=== PATIENT | male | born 1955 | race African-American/Black ===

== ENCOUNTER 2017-08-17 11:01 | Inpatient (IN) | payer OTHER ==
[~2017-08-17] VITALS: Ht 170.2 cm; Wt 97.5 kg
[~2017-08-17 11:01] MED LIST: FLOMAX0.4 MG ORAL; IBUPROFEN600 MG ORAL; IBUPROFEN600 MG PO; NKM; TRAMADOL HCL50 MG ORAL; TYLENOL #21 EA ORAL; VICODIN 5-5001 EACH PO
[2017-08-17 11:21] VITALS: BP 150/84
[2017-08-17] MEDS ORDERED: Solu-MEDROL 125mg Inj IVP ONE (11:45)
[2017-08-17] MEDS ORDERED: DiphenhydrAMINE 50mg/ml Inj IVP ONE (11:45)
[2017-08-17 12:20] LABS: BASOPHILS % (AUTO) 1.3 % (0.0-2.0); EOSINOPHILS % (AUTO) 1.3 % (0.0-3.0); HEMATOCRIT 45.1 % (42.0-52.0); HEMOGLOBIN 14.5 G/DL (14.2-18.0); LYMPHOCYTES % (AUTO) 24.6 % (20.0-45.0); MEAN CORPUSCULAR VOLUME 89 FL (80-99); MONOCYTES % (AUTO) 7.8 % (1.0-10.0); PLATELET COUNT 234 K/UL (150-450); RED BLOOD COUNT 5.09 M/UL (4.70-6.10); RED CELL DISTRIBUTION WIDTH 12.5 % (11.6-14.8); WHITE BLOOD COUNT 8.2 K/UL (4.8-10.8)
--- NOTE | 2017-08-17 12:24 | Diagnostic Imaging Report ---
Indication: Dyspnea Technique: XRAY Chest 1v Comparison: None Findings: Heart size and mediastinal contours are within normal limits given technique. There is no focal consolidation, pneumothorax or pleural effusion. Degenerative changes noted in the spine. Osseous structures demonstrate no acute abnormality. Impression: No radiographic evidence of acute cardiopulmonary disease.
[2017-08-17 12:34] LABS: ANION GAP 9 mmol/L (5-15); BLOOD UREA NITROGEN 11 mg/dL (7-18); CALCIUM 9.4 MG/DL (8.5-10.1); CARBON DIOXIDE 26 MMOL/L (21-32); CHLORIDE 102 MMOL/L (98-107); CREATININE 0.8 MG/DL (0.55-1.30); POTASSIUM 3.9 MMOL/L (3.5-5.1); SODIUM 136 MMOL/L (136-145)
[2017-08-17 12:38] LABS: ALANINE AMINOTRANSFERASE 25 U/L (12-78); ALBUMIN 3.7 G/DL (3.4-5.0); ALBUMIN/GLOBULIN RATIO 0.9 (1.0-2.7); ALKALINE PHOSPHATASE 51 U/L (46-116); ASPARTATE AMINO TRANSFERASE 16 U/L (15-37); BILIRUBIN,TOTAL 0.7 MG/DL (0.2-1.0)
[2017-08-17] MEDS ORDERED: FINASTERIDE5 MG ORAL (12:44)
[2017-08-17] MEDS ORDERED: PROSCAR5 MG ORAL (12:44)
[2017-08-17] MEDS ORDERED: PRILOSEC OTC20 MG ORAL (12:45)
--- NOTE | 2017-08-17 12:53 | Emergency Room Report ---
History of Present Illness General Chief Complaint: Allergic Reaction Source: Patient, Medical Record Present Illness HPI 62-year-old male presents with acute swelling of tongue and lips since this morning. Patient stating that this has been happening on and off for 6-7 months. He attributes it to salt allergy. He takes medication for prostate including finasteride. He is not on an DWAYNE inhibitor or ARB. He denies chest pain, shortness of breath, rash. He took a "allergy pill" this morning and the tongue swelling went down. Allergies: Coded Allergies: PENICILLINS (Verified Adverse Reaction, GI UPSET, 10/27/13) upset stomach Patient History Past Medical History: other - bph Past Surgical History: none Pertinent Family History: none Social History: Denies: smoking, alcohol use, drug use Immunizations: UTD Reviewed Nursing Documentation: PMH: Agreed, PSxH: Agreed Nursing Documentation-PMH Past Medical History: No History, Except For Review of Systems All Other Systems: negative except mentioned in HPI Physical Exam Vital Signs Date Time Temp Pulse Resp B/P (MAP) Pulse Ox O2 Delivery O2 Flow Rate FiO2 08/17/17 11:03 98.1 81 18 150/84 97 Room Air Sp02 EP Interpretation: reviewed, normal General Appearance: normal inspection, well appearing, no apparent distress, alert, GCS 15, non-toxic Head: normocephalic, atraumatic Eyes: bilateral eye PERRL, bilateral eye EOMI ENT: normal ENT inspection, hearing grossly normal, normal pharynx, no angioedema, normal voice, TMs + canals normal, uvula midline, moist mucus membranes, other - Upper and lower lip swelling. Tongue is normal size, oropharynx clear Neck: normal inspection, full range of motion, supple, thyroid normal, no meningismus, no bony tend Respiratory: normal inspection, lungs clear, normal breath sounds, no rhonchi, no respiratory distress, no retraction, no accessory muscle use, no wheezing, speaking full sentences Cardiovascular #1: regular rate, rhythm, no edema, no JVD, normal capillary refill Gastrointestinal: normal inspection, normal bowel sounds, non tender, soft, no mass, no peritonitis, non-distended, no guarding, no hernia, no pulsatile mass Genitourinary: no CVA tenderness Musculoskeletal: normal inspection, back normal, normal range of motion, no calf tenderness, pelvis stable, Slick's Sign negative Neurologic: normal inspection, alert, oriented x3, responsive, customer success director III-XII nml as tested, motor strength/tone normal, cerebellar normal, normal gait, speech normal Psychiatric: normal inspection, judgement/insight normal, mood/affect normal, no suicidal/homicidal ideation, no delusions Skin: normal inspection, normal color, no rash Lymphatic: normal inspection, no adenopathy Medical Decision Making Diagnostic Impression: Primary Impression: Angioedema Qualified Codes: T78.3XXA - Angioneurotic edema, initial encounter ER Course 62-year-old male with likely angioedema Unknown etiology - not on ARBs, ACEi Per Uptodate <1% chance of angioedema in patients taking finasteride Was given steroids and additional Benadryl in ER with improvement in swelling of lips Oropharynx clear, airway patent - patient tolerating PO However patient warrants telemetry monitoring to evaluate airway to ensure no acute worsening labs otherwise unremarkable Tele Admit Endorsed to Dr Hitchcock at 230pm to followup admission to hospitalist vs transfer EKG Diagnostic Results Rate: normal Rhythm: NSR ST Segments: no acute changes ASA given to the pt in ED: No Rhythm Strip Diag. Results EP Interpretation: yes Rate: 63 Rhythm: NSR, no PVC's, no ectopy Last Vital Signs Date Time Temp Pulse Resp B/P (MAP) Pulse Ox O2 Delivery O2 Flow Rate FiO2 08/17/17 11:21 98.1 18 150/84 97 Room Air 08/17/17 11:03 81 Status: improved Disposition: ADMITTED INPATIENT Condition: Serious TERRA BISHOP M.D. Aug 17, 2017 12:53
[2017-08-17 14:38] VITALS: BP 141/74
[2017-08-17 16:38] VITALS: BP 116/50
[2017-08-17] MEDS ORDERED: Mylanta II UD 30ml ORAL PRN (19:00)
[2017-08-17] MEDS ORDERED: Morphine Sulfate 2mg/ml Inj IVP PRN (19:00)
[2017-08-17] MEDS ORDERED: Miralax 17gm pkt ORAL PRN (19:00)
[2017-08-17] MEDS ORDERED: Zolpidem 5mg tab ORAL PRN (19:00)
[2017-08-17] MEDS ORDERED: LORazepam Inj 2mg/ml 1ml IV PRN (19:00)
[2017-08-17 20:00] VITALS: BP 138/71
[2017-08-17] MEDS: DiphenhydrAMINE 50mg/ml Inj IVP SCH (20:11)
[2017-08-17] MEDS: Solu-MEDROL 40mg Inj IVP SCH (20:12)
[2017-08-18] VITALS: BP 129/81
[2017-08-18] MEDS: DiphenhydrAMINE 50mg/ml Inj IVP SCH ×2 (00:13→05:44)
[2017-08-18 04:00] VITALS: BP 140/78
[2017-08-18] MEDS: Solu-MEDROL 40mg Inj IVP SCH (05:44)
[2017-08-18 08:47] LABS: HEMATOCRIT 41.9 % (42.0-52.0); HEMOGLOBIN 14.2 G/DL (14.2-18.0); MEAN CORPUSCULAR VOLUME 88 FL (80-99); PLATELET COUNT 234 K/UL (150-450); RED BLOOD COUNT 4.75 M/UL (4.70-6.10); RED CELL DISTRIBUTION WIDTH 12.6 % (11.6-14.8); WHITE BLOOD COUNT 11.7 K/UL (4.8-10.8)
[2017-08-18] MEDS ORDERED: Naproxen 375mg tab ORAL SCH (09:00)
[2017-08-18 09:17] LABS: ALANINE AMINOTRANSFERASE 24 U/L (12-78); ALBUMIN 3.4 G/DL (3.4-5.0); ALBUMIN/GLOBULIN RATIO 0.8 (1.0-2.7); ALKALINE PHOSPHATASE 47 U/L (46-116); ANION GAP 8 mmol/L (5-15); ASPARTATE AMINO TRANSFERASE 12 U/L (15-37); BILIRUBIN,TOTAL 0.4 MG/DL (0.2-1.0); BLOOD UREA NITROGEN 17 mg/dL (7-18); CALCIUM 9.5 MG/DL (8.5-10.1); CARBON DIOXIDE 24 MMOL/L (21-32); CHLORIDE 102 MMOL/L (98-107); CHOLESTEROL 175 MG/DL (< 200); CREATININE 0.9 MG/DL (0.55-1.30); HDL CHOLESTEROL 39 MG/DL (40-60); POTASSIUM 3.9 MMOL/L (3.5-5.1); SODIUM 134 MMOL/L (136-145); TRIGLYCERIDES 41 MG/DL (30-150)
--- NOTE | 2017-08-18 09:35 | History and Physical ---
History of Present Illness General Date patient seen: Aug 18, 2017 Reason for Hospitalization: Allergic Reaction Present Illness HPI 62-year-old male with hx of HTN, BPH presented to ER with acute swelling of tongue and lips since this morning. He takes medication for prostate including finasteride. He is not on an DWAYNE inhibitor or ARB. He denies chest pain, shortness of breath, rash. His tongue was a size of his fist. Allergies: Coded Allergies: PENICILLINS (Verified Adverse Reaction, GI UPSET, 10/27/13) upset stomach Medication History Scheduled Acetaminophen/Codeine (Acetaminophen-Cod #2 Tablet), 1 TAB ORAL Q4H, (Reported) Finasteride (Finasteride), 5 MG ORAL DAILY, (Reported) Finasteride* (Proscar*), 5 MG ORAL DAILY, (Reported) No Known Medications* (NKM - No Known Medications*), 0 ., (Reported) Omeprazole Magnesium (Prilosec Otc), 20 MG ORAL DAILY, (Reported) Tamsulosin HCl (Flomax), 0.4 MG ORAL DAILY, (Reported) Scheduled PRN Ibuprofen* (Motrin*), 600 MG ORAL Q8H PRN for For Pain Ibuprofen* (Motrin*), 600 MG ORAL Q6H PRN for For Pain Tramadol Hcl* (Ultram*), 50 MG ORAL Q6H PRN for For Pain Patient History Healthcare decision maker Sundar Francisco Resuscitation status Full Code Advanced Directive on File Past Medical/Surgical History Past Medical/Surgical History: (1) BPH (benign prostatic hyperplasia) Review of Systems All Other Systems: negative except mentioned in HPI Physical Exam General Appearance: WD/WN Lines, tubes and drains: peripheral HEENT: normocephalic, anicteric Neck: non-tender, supple Respiratory/Chest: chest wall non-tender, normal breath sounds Breasts: no masses Cardiovascular/Chest: normal rate Abdomen: normal bowel sounds Last 24 Hour Vital Signs Date Time Temp Pulse Resp B/P (MAP) Pulse Ox O2 Delivery O2 Flow Rate FiO2 08/18/17 04:00 97.0 68 20 140/78 97 08/18/17 03:39 68 08/18/17 00:00 97.7 71 20 129/81 98 08/17/17 23:42 68 08/17/17 20:44 90 08/17/17 20:00 97.6 84 20 138/71 100 08/17/17 16:39 98.1 76 14 116/50 99 Room Air 08/17/17 16:38 98.1 76 21 116/50 97 Room Air 08/17/17 14:38 98.1 79 14 141/74 99 Room Air 08/17/17 11:21 98.1 18 150/84 97 Room Air 08/17/17 11:03 98.1 81 18 150/84 97 Room Air Intake and Output 08/17/17 08/18/17 19:00 07:00 Intake Total 240 ml 240 ml Balance 240 ml 240 ml Intake Oral 240 ml 240 ml # Voids 1 2 Laboratory Tests Test 08/17/17 12:08 08/18/17 07:10 White Blood Count 8.2 K/UL (4.8-10.8) 11.7 K/UL (4.8-10.8) H Red Blood Count 5.09 M/UL (4.70-6.10) 4.75 M/UL (4.70-6.10) Hemoglobin 14.5 G/DL (14.2-18.0) 14.2 G/DL (14.2-18.0) Hematocrit 45.1 % (42.0-52.0) 41.9 % (42.0-52.0) L Mean Corpuscular Volume 89 FL (80-99) 88 FL (80-99) Mean Corpuscular Hemoglobin 28.4 PG (27.0-31.0) 30.0 PG (27.0-31.0) Mean Corpuscular Hemoglobin Concent 32.1 G/DL (32.0-36.0) 33.9 G/DL (32.0-36.0) Red Cell Distribution Width 12.5 % (11.6-14.8) 12.6 % (11.6-14.8) Platelet Count 234 K/UL (150-450) 234 K/UL (150-450) Mean Platelet Volume 10.1 FL (6.5-10.1) 10.1 FL (6.5-10.1) Neutrophils (%) (Auto) 65.0 % (45.0-75.0) % (45.0-75.0) Lymphocytes (%) (Auto) 24.6 % (20.0-45.0) % (20.0-45.0) Monocytes (%) (Auto) 7.8 % (1.0-10.0) % (1.0-10.0) Eosinophils (%) (Auto) 1.3 % (0.0-3.0) % (0.0-3.0) Basophils (%) (Auto) 1.3 % (0.0-2.0) % (0.0-2.0) Sodium Level 136 MMOL/L (136-145) 134 MMOL/L (136-145) L Potassium Level 3.9 MMOL/L (3.5-5.1) 3.9 MMOL/L (3.5-5.1) Chloride Level 102 MMOL/L (98-107) 102 MMOL/L (98-107) Carbon Dioxide Level 26 MMOL/L (21-32) 24 MMOL/L (21-32) Anion Gap 9 mmol/L (5-15) 8 mmol/L (5-15) Blood Urea Nitrogen 11 mg/dL (7-18) 17 mg/dL (7-18) Creatinine 0.8 MG/DL (0.55-1.30) 0.9 MG/DL (0.55-1.30) Estimat Glomerular Filtration Rate > 60 mL/min (>60) > 60 mL/min (>60) Glucose Level 96 MG/DL (74-106) 147 MG/DL (74-106) H Calcium Level 9.4 MG/DL (8.5-10.1) 9.5 MG/DL (8.5-10.1) Total Bilirubin 0.7 MG/DL (0.2-1.0) 0.4 MG/DL (0.2-1.0) Aspartate Amino Transf (AST/SGOT) 16 U/L (15-37) 12 U/L (15-37) L Alanine Aminotransferase (ALT/SGPT) 25 U/L (12-78) 24 U/L (12-78) Alkaline Phosphatase 51 U/L (46-116) 47 U/L (46-116) Total Protein 8.0 G/DL (6.4-8.2) 7.9 G/DL (6.4-8.2) Albumin 3.7 G/DL (3.4-5.0) 3.4 G/DL (3.4-5.0) Globulin 4.3 g/dL 4.5 g/dL Albumin/Globulin Ratio 0.9 (1.0-2.7) L 0.8 (1.0-2.7) L Differential Total Cells Counted 100 Neutrophils % (Manual) 88 % (45-75) H Lymphocytes % (Manual) 11 % (20-45) L Monocytes % (Manual) 1 % (1-10) Eosinophils % (Manual) 0 % (0-3) Basophils % (Manual) 0 % (0-2) Band Neutrophils 0 % (0-8) Platelet Estimate Adequate Platelet Morphology Normal Red Blood Cell Morphology Normal Triglycerides Level 41 MG/DL (30-150) Cholesterol Level 175 MG/DL (< 200) LDL Cholesterol 128 mg/dL (<100) H HDL Cholesterol 39 MG/DL (40-60) L Cholesterol/HDL Ratio 4.5 (3.3-4.4) H Thyroid Stimulating Hormone (TSH) 0.251 uiU/mL (0.358-3.740) Height (Feet): 5 Height (Inches): 7.00 Weight (Pounds): 215 Medications Current Medications Medications (Trade) Dose Ordered Sig/Franky Route PRN Reason Start Time Stop Time Status Last Admin Dose Admin Acetaminophen (Tylenol) 650 mg Q4H PRN ORAL Mild Pain/Temp > 100.5 08/17/17 17:45 09/16/17 17:44 Acetaminophen (Tylenol) 650 mg Q4H PRN ORAL fever 08/17/17 19:00 09/16/17 18:59 Al Hydroxide/Mg Hydroxide (Mylanta II) 30 ml Q6H PRN ORAL dyspepsia 08/17/17 19:00 09/16/17 18:59 Dextrose (Dextrose 50%) STAT PRN IV Hypoglycemia 08/17/17 19:00 09/16/17 18:59 Diphenhydramine HCl (Benadryl) 50 mg Q6HR IVP 08/17/17 18:30 09/16/17 18:29 08/18/17 05:44 Famotidine (Pepcid I.v.) 20 mg Q12HR IVP 08/17/17 21:00 09/16/17 20:59 08/18/17 09:07 Lorazepam (Ativan 2mg/ml 1ml) 0.5 mg Q4H PRN IV For Anxiety 08/17/17 19:00 08/24/17 18:59 Methylprednisolone Sodium Succinate (Solu-MEDROL) 40 mg EVERY 8 HOURS IVP 08/17/17 20:00 09/16/17 19:59 08/18/17 05:44 Morphine Sulfate (Morphine Sulfate) 1 mg Q4H PRN IVP Severe Pain Scale 7-10 08/17/17 19:00 08/24/17 18:59 Naproxen (Naprosyn) 375 mg DAILY ORAL 08/18/17 09:00 09/17/17 08:59 08/18/17 09:10 Ondansetron HCl (Zofran) 4 mg Q6H PRN IVP Nausea & Vomiting 08/17/17 19:00 09/16/17 18:59 Polyethylene Glycol (Miralax) 17 gm HSPRN PRN ORAL Constipation 08/17/17 19:00 09/16/17 18:59 Zolpidem Tartrate (Ambien) 5 mg HSPRN PRN ORAL Insomnia 08/17/17 19:00 08/24/17 18:59 Assessment/Plan Problem List: (1) Angioedema ICD Codes: T78.3XXA - Angioneurotic edema, initial encounter SNOMED: [id number] Qualifiers: Qualified Codes: T78.3XXA - Angioneurotic edema, initial encounter Assessment/Plan improved, s/p steroids [facility] RUDY MISHRA Aug 18, 2017 09:35
--- NOTE | 2017-08-20 08:22 | Discharge Summary ---
Discharge Summary Hospital Course Date of Admission Aug 17, 2017 at 15:58 Date of Discharge Aug 18, 2017 at 10:35 Admitting Diagnosis angioedema HPI Martinez Francisco is a 62 year old male who was admitted on Aug 17, 2017 at 15:58 for Angioedema Hospital Course dc summary #[id number] Discharge Medications Continued Medications: Finasteride (Finasteride) 5 Mg Tablet 5 MG ORAL DAILY, #30 TAB 0 Refills Tamsulosin HCl (Flomax) 0.4 Mg Cap 0.4 MG ORAL DAILY, CAP Discharge Condition Upon Discharge: stable Discharge Disposition Patient was discharged to Home (01) Discharge Diagnoses: Discharge Instructions Discharge Instructions Special Instructions I have been assigned to complete a D/C Summary on this account. I was not involved in the patient management Sophie Yancey NP (Vanchtein) Aug 20, 2017 08:22
--- NOTE | 2017-08-21 05:30 | Discharge Summary 2 SIG ---
DATE OF ADMISSION: 08/17/2017 DATE OF DISCHARGE: 08/18/2017 REASON FOR ADMISSION: 62-year-old male presented to emergency department with acute swelling of tongue and lips since that morning. The patient reported that this had happened to him off and on for the last six to seven months. He attributed this to salt allergy. He was not on any DWAYNE inhibitor or ARB. He was taking medication for prostate including finasteride. He denied chest pain, shortness of breath, or rash. He reported taking allergy pill earlier this morning, and subsequently tongue swelling somewhat decreased. In the emergency department, vital signs were stable. Laboratory work was unremarkable. Less than one chance of angioedema reported from finasteride. Unknown etiology of angioedema. The patient was given steroids and Benadryl in the emergency department with improvement in swelling of the lips. Oropharynx was clear. Airway was patent. The patient tolerated oral intake. The patient warranted telemetry monitoring to evaluate airway to ensure no acute worsening in condition. EKG revealed normal sinus rhythm. No acute changes. No ectopy. Chest x-ray revealed no acute cardiopulmonary pathology. The patient was admitted with diagnosis of angioedema. HOSPITAL COURSE: The patient was admitted to telemetry floor. The patient was closely monitored for 24 hours. The patient was on the IV steroids along with Benadryl and H2 leroy. Angioedema resolved. Vital signs stable. Pulse oximetry stable on room air. During the laboratory workup noted low TSH. Noted elevated LDL with normal total cholesterol, LDL -128. The patient was recommended to follow up with primary medical doctor for full thyroid panel and lipid panel. Patient was advised on cardiac, low fat, low cholesterol diet and therapeutic life style changes. The patient was stable for discharge. Due to rapid and unexpected improvement in patient's condition, the patient was discharged in one day. FINAL DIAGNOSIS: Angioedema. DISCHARGE MEDICATIONS: See medication reconciliation list. DISCHARGE INSTRUCTIONS: The patient was discharged home. Follow up with the primary medical doctor. Miriam Luna M.D. I have been assigned to dictate discharge summary on this account and I was not involved in the patient's management. Sophie Yancey N.P. (Vanchtein) DR: DAVID JOB#: [id number] CC: SONJA
--- NOTE | 2017-08-22 14:48 | Cardiology Report ---
APPROVED REPORT EKG Measurement Heart [id number] Sinus rhythm with marked sinus arrhythmia Otherwise normal ECG
== END 2017-08-18 10:35 | disposition home or self-care (01) | DRG 811 ==
LOC: EMR 11:35 → EDBEDREQ 15:47 → 2E 15:58 → EDBEDREQ 17:58
DX: T78.3XXA Angioneurotic edema, initial encounter (principal); I10 Essential (primary) hypertension; N40.0 Benign prostatic hyperplasia without lower urinary tract symptoms; Z88.0 Allergy status to penicillin
CPT/HCPCS: 36415; 71045; 80053; 80061; 84443; 85007; 85025; 93005; 99285

== ENCOUNTER 2018-03-24 18:46 | Emergency (ER) | payer OTHER ==
[~2018-03-24] VITALS: Ht 170.2 cm; Wt 95.3 kg
[~2018-03-24 18:46] MED LIST changes: +FINASTERIDE5 MG ORAL; +PRILOSEC OTC20 MG ORAL; +PROSCAR5 MG ORAL
[2018-03-24] MEDS ORDERED: MELOXICAM7.5 MG PO (18:56)
[2018-03-24] MEDS ORDERED: ZYRTEC10 MG ORAL (18:56)
[2018-03-24 18:57] VITALS: BP 150/92
--- NOTE | 2018-03-24 19:44 | Emergency Room Report ---
History of Present Illness General Chief Complaint: Pain Source: Patient, Medical Record Present Illness HPI 62-year-old male presents to the emergency department complaining of 9 out of 10 in severity pain in the right posterior hip that radiates down the right leg when he bends over or sitting for too long. Patient denies trauma or fall. Patient states that he noticed the pain after waking up one morning. Patient states it's been going on for 4 days now. Denies fevers, chills, recent open wounds in the hip area. Patient does report back injury almost 15 years ago. Denies numbness tingling or loss of sensation or gross motor movements of the extremities, incontinence of bowel or bladder. Denies CP, Palpitations, LOC, AMS , dizziness, Changes in Vision, weakness or a sudden severe headache. Allergies: Coded Allergies: PENICILLINS (Verified Adverse Reaction, GI UPSET, 10/27/13) upset stomach Patient History Past Medical History: see triage record Past Surgical History: none Pertinent Family History: none Reviewed Nursing Documentation: PMH: Agreed; PSxH: Agreed Nursing Documentation-PMH Past Medical History: No History, Except For Hx Cardiac Problems: No Hx Cancer: No Hx Gastrointestinal Problems: No Hx Neurological Problems: No Review of Systems All Other Systems: negative except mentioned in HPI Physical Exam Vital Signs Date Time Temp Pulse Resp B/P (MAP) Pulse Ox O2 Delivery O2 Flow Rate FiO2 03/24/18 18:52 98.2 70 18 150/92 100 Room Air 98.2 Sp02 EP Interpretation: reviewed, normal General Appearance: no apparent distress, alert, GCS 15, non-toxic Head: normocephalic, atraumatic Eyes: bilateral eye normal inspection, bilateral eye PERRL ENT: hearing grossly normal, normal voice Neck: full range of motion Respiratory: lungs clear, normal breath sounds, speaking full sentences Cardiovascular #1: regular rate, rhythm Rectal: deferred Genitourinary: normal inspection, no CVA tenderness Musculoskeletal: back normal, gait/station normal, normal range of motion, tender - TTP to the Right upper gluteal musculature- reproduces symptoms in leg. some mild right sided lumbar paraspinal ttp. no midline ttp, step-off or obvious deformity. no TTP directly to the hip bones Neurologic: alert, oriented x3, responsive, motor strength/tone normal, sensory intact, normal gait, speech normal, grossly normal Psychiatric: judgement/insight normal Skin: normal color, no rash, warm/dry, well hydrated Medical Decision Making PA Attestation Dr. Henriquez is my supervising Physician whom patient management has been discussed with. Diagnostic Impression: Primary Impression: Sciatica of right side ER Course 62-year-old male presents to the emergency department complaining of 9 out of 10 in severity pain in the right posterior hip that radiates down the right leg when he bends over or sitting for too long. Patient denies trauma or fall. Patient states that he noticed the pain after waking up one morning. Patient states it's been going on for almost 2 weeks now. Denies fevers, chills, recent open wounds in the hip area. Patient does report back injury almost 15 years ago. Denies numbness tingling or loss of sensation or gross motor movements of the extremities, incontinence of bowel or bladder. Denies CP, Palpitations, LOC, AMS, dizziness, Changes in Vision, weakness or a sudden severe headache. Ddx considered but are not limited to Fracture, dislocation, contusion, epidural abscess, Sprain/Strain/Spasm Vital signs: are WNL, pt. is afebrile H&PE are most consistent with sciatica ORDERS: X-ray not required at this time, no spinous process tenderness ED INTERVENTIONS: Toradol IM 20mg Re-Evaluation: pt. states his pain has subsided with ED interventions DISCHARGE: At this time pt. is stable for d/c to home. Will provide printed patient care instructions, and any necessary prescriptions. Care plan and follow up instructions have been discussed with the patient prior to discharge. Last Vital Signs Date Time Temp Pulse Resp B/P (MAP) Pulse Ox O2 Delivery O2 Flow Rate FiO2 03/24/18 18:57 98.2 70 18 150/92 100 Room Air 98.2 Disposition: HOME, SELF-CARE Condition: Stable Scripts Tramadol Hcl* (ULTRAM*) 50 Mg Tablet 50 MG ORAL Q6H PRN for For Pain, #10 TAB 0 Refills Prov: An Constantino 03/24/18 Methocarbamol* (ROBAXIN*) 500 Mg Tablet 1000 MG PO TID, #42 TAB 0 Refills Prov: An Constantino 03/24/18 Patient Instructions: Sciatica Additional Instructions: Take medications as directed. Follow up with a Primary Care Provider in 3-5 days, even if your symptoms have resolved. --Please review list of primary care clinics, if you do not already have a primary care provider Return sooner to ED if new symptoms occur, or current symptoms become worse. Do not drink alcohol, drive, or operate heavy machinery while taking Muscle Relaxers or Tramadol as this may cause drowsiness. - Please note that this Emergency Department Report was dictated using [employer] hand technology software, occasionally this can lead to erroneous entry secondary to interpretation by the dictation equipment. An Constantino Mar 24, 2018 19:44
[2018-03-24] MEDS ORDERED: ROBAXIN500 MG PO (19:45)
[2018-03-24] MEDS ORDERED: Ketorolac 60mg Inj IM ONE (19:45)
[2018-03-24] MEDS ORDERED: Norco 5mg/325mg tab ORAL ONE (19:45)
[2018-03-24] MEDS ORDERED: TRAMADOL HCL50 MG ORAL (19:45)
[2018-03-24 20:00] VITALS: BP 150/92
== END 2018-03-24 20:27 | disposition home or self-care (01) ==
LOC: EMR 19:30
DX: M54.31 Sciatica, right side (principal); Z88.0 Allergy status to penicillin
CPT/HCPCS: 96372; 99283

== ENCOUNTER 2018-08-01 14:48 | Emergency (ER) | payer OTHER ==
[~2018-08-01] VITALS: Ht 170.2 cm; Wt 93.0 kg
[~2018-08-01 14:48] MED LIST changes: +MELOXICAM7.5 MG PO; +ROBAXIN500 MG PO; +ZYRTEC10 MG ORAL
[2018-08-01 15:05] VITALS: BP 146/81
[2018-08-01] MEDS ORDERED: Ketorolac 30mg Inj IM ONE (15:30)
--- NOTE | 2018-08-01 15:33 | Emergency Room Report ---
History of Present Illness General Chief Complaint: Neck Pain Source: Patient Present Illness HPI 63-year-old male patient presents the ER complaining of left wrist and left sided neck pain and stiffness. Reports wrist pain occurred initially 3 days ago , does not remember if he injured it or slept on it funny. Patient reports that neck symptoms began 2 days ago. Patient reports again that he does not remember if he injured it or slept on it funny but states stiffness with movement. Denies fever, chest pain, shortness of breath. Denies history of HI. Patient reports that he does not know if he has a history of gout. Reports he is right-hand dominant. Reports pain worse with movement. States has not taken any medications for relief of symptoms. Reports neck pain not radiating down to his arm. Allergies: Coded Allergies: PENICILLINS (Verified Adverse Reaction, GI UPSET, 10/27/13) upset stomach Patient History Past Medical History: see triage record Reviewed Nursing Documentation: PMH: Agreed; PSxH: Agreed Nursing Documentation-PMH Past Medical History: No History, Except For Hx Cardiac Problems: No Hx Hypertension: Yes - Prostate Prob Hx Cancer: No Hx Gastrointestinal Problems: No Hx Neurological Problems: No Review of Systems All Other Systems: negative except mentioned in HPI Physical Exam Vital Signs Date Time Temp Pulse Resp B/P (MAP) Pulse Ox O2 Delivery O2 Flow Rate FiO2 08/01/18 15:00 97.7 64 18 151/85 98 Room Air Sp02 EP Interpretation: reviewed, normal General Appearance: well appearing, no apparent distress, alert, GCS 15, non- toxic Eyes: bilateral eye normal inspection, bilateral eye PERRL ENT: hearing grossly normal, normal pharynx, no angioedema, normal voice, uvula midline, moist mucus membranes Neck: full range of motion, no meningismus, no bony tend, tender lateral - left Respiratory: lungs clear, normal breath sounds, no rhonchi, no respiratory distress, no accessory muscle use, no wheezing, speaking full sentences Cardiovascular #1: regular rate, rhythm, no edema Cardiovascular #2: 2+ radial (R), 2+ radial (L) Musculoskeletal: back normal, digits/nails normal, gait/station normal, normal range of motion, non-tender, other - no gouty tophi, no deformity, no erythema, no edema, no ecchymosis, tender - mild TTP over left snuffbox Neurologic: alert, oriented x3, responsive, motor strength/tone normal, sensory intact Psychiatric: mood/affect normal Skin: no rash Medical Decision Making PA Attestation Dr. Rosa is my supervising Physician whom patient management has been discussed with. Diagnostic Impression: Primary Impression: Neck pain Additional Impression: Wrist pain ER Course Pt. presents to the ED c/o neck and wrist pain. Ddx considered but are not limited to fracture, sprain, strain, contusion, dislocation, arthritis. No chest pain, no SOB, pain with movement, reproducible, low suspicion for cardiac etiology of symptoms, does not require labs or cardiac workup at this time. No erythema, no warmth to touch, no fever, nontoxic appearing, low suspicion for septic joint. Soft compartments, no pulselessness, no pallor, no paresthesias, low suspicion for compartment syndrome at this time. Vital signs: are WNL, pt. is afebrile Ordered X-ray and pain medication. ER COURSE Provided with pain medication. An X-ray of the left wrist shows no acute disease per the preliminary reading. xray of the cervical spine shows no acute disease, degenerative changes noted. Thumb spica splint was applied to the left wrist due to snuffbox tenderness and was checked afterwards by me showing good alignment and support with distal neurovascular functioning intact. Patient instructed on RICE method: rest, ice, compression, elevation. Patient instructed on rest, ice and heat. Patient instructed to be WBAT Contact information for orthopedic urgent care provided, follow-up with urgent care if unable to followup with primary care provider and get referral to job training specialist. Followup with primary care provider. Discuss referral to ortho/pain management/ PT as needed. Discuss further imaging with MRI/CT as needed. ER precautions given. DISCHARGE: At this time pt. is stable for d/c to home. Patient is resting comfortably, in no acute distress, nontoxic appearing, talking without difficulty. Will provide printed patient care instructions, and any necessary prescriptions. Patient instructed to follow with primary care provider in 3 - 5 days and to request further follow-up as needed. Care plan and follow up instructions have been discussed with the patient prior to discharge. Take medications as directed. Patient questions asked and answered. Patient reports understanding and agreement to treatment plan. ER precautions given, patient instructed to return to ER immediately for any new or worsening of symptoms. - Please note that this Emergency Department Report was dictated using [employer] force adjustment technology software, occasionally this can lead to erroneous entry secondary to interpretation by the dictation equipment. Other X-Ray Diagnostic Results Other X-Ray Diagnostic Results #1: X-Ray ordered: Left wrist # of Views/Limited Vs Complete: 3 View Indication: Pain EP Interpretation: Yes PA Xray: Interpretation reviewed, by supervising MD, and agrees with findings. Interpretation: no dislocation, no soft tissue swelling, no fractures Impression: No acute disease YANNI ScribHuber Giordano PA-C Other X-Ray Diagnostic Results #2: X-Ray ordered: cervical spine # of Views/Limited Vs Complete: 3 View Indication: Pain EP Interpretation: Yes PA Xray: Interpretation reviewed, by supervising MD, and agrees with findings. Interpretation: no dislocation, no soft tissue swelling, no fractures Impression: No acute disease YANNI ScribHuber Giordano PA-C Last Vital Signs Date Time Temp Pulse Resp B/P (MAP) Pulse Ox O2 Delivery O2 Flow Rate FiO2 08/01/18 15:05 97.9 62 16 146/81 98 Room Air Status: improved Disposition: HOME, SELF-CARE Condition: Stable Scripts Acetaminophen* (TYLENOL EXTRA STRENGTH*) 500 Mg Tablet 500 MG ORAL Q8H PRN for Prn Headache/Temp > 101, #30 TAB 0 Refills Prov: Gonzalo Giordano.A. 08/01/18 Methocarbamol* (ROBAXIN*) 500 Mg Tablet 500 MG PO TID, #21 TAB 0 Refills Prov: Gonzalo Giordano.A. 08/01/18 Lidocaine (Lidocaine) 1 Each Adh..patch 5 % TP DAILY for 7 Days, #7 PATCH Prov: Gonzalo Giordano.A. 08/01/18 Patient Instructions: Cervical Radiculopathy, [id number], Cervical Sprain, Wrist Pain, [id number] Additional Instructions: Patient instructed to follow up with primary care provider and discuss further referral to orthopedics/physical therapy/pain management as needed. If unable to followup with PCP, followup with orthopedic urgent care in 5-7 days , call to schedule appointment. Patient instructed on RICE method: rest, ice, compression, elevation. Patient instructed to WBAT. Take medications as directed. Patient questions asked and answered. ER precautions given, patient instructed to return to ER immediately for any new or worsening of symptoms. [facility] [address] [facility] [address] [facility], [id number] [email or web address] Gonzalo Giordano Aug 01, 2018 15:33
--- NOTE | 2018-08-01 16:13 | Diagnostic Imaging Report ---
Clinical Indication:Left wrist pain Technique: 3 views of the left wrist Comparison: None Findings: No acute fractures. No dislocations. The joint spaces are preserved. The bones are osteoporotic. Impression: No acute process
[2018-08-01] MEDS ORDERED: TYLENOL EXTRA500 MG ORAL (16:32)
[2018-08-01] MEDS ORDERED: LIDOCAINE700 M1 TP (16:32)
[2018-08-01] MEDS ORDERED: ROBAXIN500 MG PO (16:32)
--- NOTE | 2018-08-01 16:40 | Diagnostic Imaging Report ---
Indication: Cervical spine pain Technique: 3 views of the cervical spine Comparison: none Findings: Bony alignment is normal. No prevertebral soft tissue swelling. No acute fractures. No dislocations. There are large anterior bridging osteophytes. Impression: No acute bony trauma
[2018-08-01 16:54] VITALS: BP 143/83
== END 2018-08-01 16:55 | disposition home or self-care (01) ==
LOC: EMR 15:32
DX: M54.2 Cervicalgia (principal); M25.532 Pain in left wrist; I10 Essential (primary) hypertension; Z88.0 Allergy status to penicillin
CPT/HCPCS: 72040; 73110; 96372; 99284; J1885

== ENCOUNTER 2020-07-14 12:10 | Inpatient (IN) | payer OTHER ==
[~2020-07-14] VITALS: Ht 170.2 cm; Wt 93.0 kg
[~2020-07-14 12:10] MED LIST changes: +LIDOCAINE700 M1 TP; +TYLENOL EXTRA500 MG ORAL
[2020-07-14 12:45] VITALS: BP 159/83
--- NOTE | 2020-07-14 12:56 | Emergency Room Report ---
History of Present Illness General Chief Complaint: Chest Pain Source: Patient, Medical Record Present Illness HPI 65-year-old male with a history of hypertension here with chest pain. Patient has been having exertional substernal chest tightness over the past week that has been gradually worsening. Chest pain is located in substernal region and radiates to his left shoulder. Worse when he exerts himself. Has not take any medication for the pain. Pain is 2 out of 10 in intensity right now but 10 out of 10 at its peak. Says he feels nauseous but does not vomit when he has this. No fevers, chills, shortness of breath, back pain, abdominal pain, vomiting, diarrhea, dysuria. No family history of heart disease. Does not smoke or use illicit substances. Allergies: Coded Allergies: PENICILLINS (Verified Adverse Reaction, GI UPSET, 10/27/13) upset stomach COVID-19 Screening Contact w/high risk pt: No Experienced COVID-19 symptoms?: No COVID-19 Testing performed BARIATRIC NURSE: No Nursing Documentation-[facility] Past Medical History: No History, Except For Hx Cardiac Problems: No Hx Hypertension: Yes - Prostate Prob Hx Cancer: No Hx Gastrointestinal Problems: No Hx Neurological Problems: No Review of Systems All Other Systems: negative except mentioned in HPI Physical Exam Vital Signs Date Time Temp Pulse Resp B/P (MAP) Pulse Ox O2 Delivery O2 Flow Rate FiO2 07/14/20 12:16 97.9 70 20 163/86 (111) 96 Room Air Sp02 EP Interpretation: reviewed, normal General Appearance: no apparent distress, alert, non-toxic Head: normocephalic, atraumatic Eyes: bilateral eye normal inspection, bilateral eye PERRL ENT: hearing grossly normal, normal pharynx, no angioedema, normal voice Neck: full range of motion, supple/symm/no masses Respiratory: chest non-tender, lungs clear, normal breath sounds, speaking full sentences Cardiovascular #1: regular rate, rhythm, no edema Cardiovascular #2: 2+ carotid (R), 2+ carotid (L), 2+ radial (R), 2+ radial (L), 2+ dorsalis pedis (R), 2+ dorsalis pedis (L) Gastrointestinal: normal bowel sounds, non tender, soft, non-distended, no guarding, no rebound Rectal: deferred Genitourinary: normal inspection, no CVA tenderness Musculoskeletal: back normal, normal range of motion, gait/station normal, non- tender Neurologic: alert, motor strength/tone normal, oriented x3, sensory intact, responsive, speech normal Psychiatric: judgement/insight normal, memory normal, mood/affect normal, no suicidal/homicidal ideation Lymphatic: no adenopathy Medical Decision Making Diagnostic Impression: Primary Impression: Chest pain ER Course Chest x-ray: No infiltrate/effusion. Mediastinum within normal limits. No consolidation. No free air under the diaphragm. No bony abnormalities. No vascular congestion EKG: NSR, 59 bpm. T wave inversions in V4 and V5, Q waves in V1 and V2., no ischemia, intervals WNL. No ectopy Rhythm strip: patient monitored for arrhythmias - no malignant dysrhythmias, runs of PVCs, nor pauses noted 65-year-old male here with chest pain. Patient had a concerning chest pain story and elevated heart score of 4. Troponin was notably elevated 0.22.. He had normal chest x-ray and EKG showed Q waves in V1 and V2 and T wave inversions in V4 and V5. There are no chest x-rays or old EKGs to compare. To the patient's knowledge she has never had any history of CAD. Patient initially was suffering from chest pain when he first arrived to the emergency department but then said the chest pain self resolved with rest as he laid in bed. He was given aspirin. Patient says that he has never seen a patient access manager and is wishing to be admitted to the hospital so he can see a patient access manager on an inpatient basis. Currently waiting for telemetry bed. Signed out to oncoming physician. Last Vital Signs Date Time Temp Pulse Resp B/P (MAP) Pulse Ox O2 Delivery O2 Flow Rate FiO2 07/14/20 12:16 97.9 70 20 163/86 (557) 96 Room Air Trevor Schmitt M.D. Jul 14, 2020 12:56
[2020-07-14] MEDS ORDERED: Aspirin Baby 81mg ORAL ONE (13:00)
[2020-07-14 13:59] LABS: BASOPHILS % (AUTO) 2.1 % (0.0-2.0); EOSINOPHILS % (AUTO) 2.9 % (0.0-3.0); HEMATOCRIT 43.1 % (42.0-52.0); HEMOGLOBIN 14.1 G/DL (14.2-18.0); LYMPHOCYTES % (AUTO) 32.5 % (20.0-45.0); MEAN CORPUSCULAR VOLUME 88 FL (80-99); MONOCYTES % (AUTO) 9.5 % (1.0-10.0); NEUTROPHILS % (AUTO) 53.1 % (45.0-75.0); PLATELET COUNT 185 K/UL (150-450); RED BLOOD COUNT 4.89 M/UL (4.70-6.10); RED CELL DISTRIBUTION WIDTH 13.4 % (11.6-14.8); WHITE BLOOD COUNT 5.3 K/UL (4.8-10.8)
[2020-07-14 14:05] LABS: ANION GAP 7 mmol/L (5-15); BLOOD UREA NITROGEN 10 mg/dL (7-18); CALCIUM 9.3 MG/DL (8.5-10.1); CARBON DIOXIDE 25 MMOL/L (21-32); CHLORIDE 103 MMOL/L (98-107); CREATININE 0.8 MG/DL (0.55-1.30); POTASSIUM 4.3 MMOL/L (3.5-5.1); SODIUM 135 MMOL/L (136-145)
[2020-07-14 14:11] LABS: ALANINE AMINOTRANSFERASE 25 U/L (12-78); ALBUMIN 3.5 G/DL (3.4-5.0); ALBUMIN/GLOBULIN RATIO 0.9 (1.0-2.7); ALKALINE PHOSPHATASE 61 U/L (46-116); ASPARTATE AMINO TRANSFERASE 18 U/L (15-37); BILIRUBIN,TOTAL 0.4 MG/DL (0.2-1.0)
[2020-07-14 15:02] VITALS: BP 152/81
[2020-07-14] MEDS ORDERED: Enoxaparin 80mg Inj SUBQ ONE (15:15)
--- NOTE | 2020-07-14 15:23 | Diagnostic Imaging Report ---
Indication: Reason For Exam: CP Technique: Single AP view of the chest. Comparison: Chest Dictated 08/17/2017 Findings: The cardiomediastinal silhouette is unchanged in appearance. No new airspace consolidation. No pneumothorax or pleural effusion. No acute osseous abnormality. IMPRESSION: No radiographic evidence of acute cardiac pulmonary process.
[2020-07-14 17:30] VITALS: BP 104/50
[2020-07-14 17:39] VITALS: BP 143/80
[2020-07-14] MEDS ORDERED: Miralax 17gm pkt ORAL PRN (18:00)
[2020-07-14] MEDS ORDERED: Albuterol/Ipratropium 3ml neb HHN PRN (18:00)
[2020-07-14] MEDS ORDERED: Enalaprilat 2.5mg/2ml Inj IV PRN (18:00)
[2020-07-14] MEDS ORDERED: dilTIAZem HCl 25mg/5ml Inj IV PRN (18:00)
[2020-07-14] MEDS ORDERED: Heparin 5000 units/ml inj SUBQ SCH (21:00)
--- NOTE | 2020-07-14 22:55 | History & Physical ---
History and Physical History & Physicial patient signed AMA prior to my visit. Patel Sanon MD Jul 14, 2020 22:55
[2020-07-15] MEDS ORDERED: Lexiscan 0.4mg/5ml syringe IV PRN (08:00)
[2020-07-15] MEDS ORDERED: Tamsulosin 0.4mg cap ORAL SCH (09:00)
[2020-07-15] MEDS ORDERED: Aspirin Baby 81mg ORAL SCH (09:00)
== END 2020-07-14 19:00 | disposition left against medical advice (07) | DRG 203 ==
LOC: EDBEDREQ 12:52 → EMR 13:14 → 2E 14:42 → EDBEDREQ 15:55
DX: R07.9 Chest pain, unspecified (principal); I10 Essential (primary) hypertension
CPT/HCPCS: 36415; 71045; 80053; 80307; 84484; 85025; 93005; 99285